=== PATIENT | female | born 1950 | race Caucasian/White ===

== ENCOUNTER → 2017-05-09 | Emergency (ER) | payer BC ==
[~2017-05-09] VITALS: Ht 170.2 cm; Wt 79.4 kg
[~2017-05-09] MED LIST: ALBUTEROL/IPRATROPIUM 3 ML NEB NEB ONE; BELLADONNA ALK/PHENOBARBITAL 5 ML UDC PO ONE; CEFTRIAXONE SOD 1 GM VIAL IM ONE; HYDROCODONE AP; LIDOCAINE VISC 2% SOLN 15 ML UDC PO ONE; MAGNESIUM/ALUMINUM/SIMETHICONE 30 ML UDC PO ONE; Z.0.LOPID600 MG; Z.0.PREMARIN0.625 MG; Z.0.SYNTHROID137 MCG
[2017-05-09 19:38] VITALS: BP 159/54
== END | disposition home or self-care (01) ==
LOC: FSED 17:20
DX: R50.9 Fever, unspecified (principal); B34.9 Viral infection, unspecified
CPT/HCPCS: 99283; J0696

== ENCOUNTER → 2020-06-19 | Outpatient (CLI) | payer MEDICARE, BC ==
[~2020-06-19] MED LIST changes: -ALBUTEROL/IPRATROPIUM 3 ML NEB NEB ONE; -BELLADONNA ALK/PHENOBARBITAL 5 ML UDC PO ONE; -CEFTRIAXONE SOD 1 GM VIAL IM ONE; -LIDOCAINE VISC 2% SOLN 15 ML UDC PO ONE; -MAGNESIUM/ALUMINUM/SIMETHICONE 30 ML UDC PO ONE
== END ==
LOC: MRI 09:25
PROVIDERS: ATTEND Family Medicine
DX: R42 Dizziness and giddiness (principal); H53.9 Unspecified visual disturbance; Z86.73 Personal history of transient ischemic attack (TIA), and cerebral infarction without residual deficits
CPT/HCPCS: 70551

== ENCOUNTER 2021-07-02 23:59 | Emergency (ER) | payer MEDICARE, BC ==
[~2021-07-02] VITALS: Ht 170.2 cm; Wt 77.1 kg
[2021-07-03] MEDS ORDERED: POTASSIUM CHLORIDE 20 MEQ TAB CR PO STA (00:55)
[2021-07-03] MEDS ORDERED: POTASSIUM CHLORIDE 20 MEQ TAB CR PO ONE (01:09)
[2021-07-03 03:50] VITALS: BP 99/55
== END 2021-07-03 03:50 | disposition home or self-care (01) ==
LOC: FSED 07-03 00:39
DX: R00.2 Palpitations (principal); E87.6 Hypokalemia; Z88.1 Allergy status to other antibiotic agents; Z79.899 Other long term (current) drug therapy; Z85.850 Personal history of malignant neoplasm of thyroid; Z86.73 Personal history of transient ischemic attack (TIA), and cerebral infarction without residual deficits
CPT/HCPCS: 71046; 80053; 82553; 84484; 85025; 93005; 99284